=== PATIENT | male | born 2000 | race Caucasian/White ===

== ENCOUNTER 2021-09-14 13:55 | Emergency (ER) | payer OTHER ==
[2021-09-14 14:37] VITALS: BP 139/83; PULSE 98; RESP 17; TEMP 98.7
--- NOTE | 2021-09-14 15:04 | XR ---
EXAMINATION TYPE: XR foot complete RT DATE OF EXAM: 09/14/2021 CLINICAL HISTORY: pain TECHNIQUE: Frontal, lateral and oblique images of the right foot are obtained. COMPARISON: None. FINDINGS: There is no acute fracture/dislocation evident. The joint spaces appear within normal arevalo its. The overlying soft tissue appears unremarkable. IMPRESSION: There is no acute fracture or dislocation. ICD 10 NO FRACTURE, INITIAL EVALUATION
--- NOTE | 2021-09-14 15:30 | ED ---
Lower Extremity Injury HPI - General Chief Complaint: Extremity Injury, Lower Stated Complaint: Fell of ladder at work Time Seen by Provider: 09/14/21 14:46 Source: patient, RN notes reviewed Mode of arrival: ambulatory Limitations: no limitations - History of Present Illness Initial Comments: Patient is a 21-year-old male presenting to emergency Department with complaints of right foot pain after he fell off a ladder prior to arrival. Patient states he was at work, up about 4 feet on the ladder when he felt like the ladder twisted and he fell backwards. He states the ladder went towards the left and he went towards the right, he landed mostly flat on his back. He states he sat there for a few seconds, and felt okay so he went to stand up and noticed some pain in his right heel area. He did not hit his head, no loss of consciousness, no neck pain. He is able to ambulate with placing most of his weight on the front of the foot. He denies any previous injuries or surgeries to his right foot or ankle. He denies any pain in his back, no shortness of breath, no chest pain. He denies any pelvic pain, no abdominal pain, nausea or vomiting. Patient states he feels absolutely fine except for his right foot pain. He has no further complaints. - Related Data Allergies Allergy/AdvReac Type Severity Reaction Status Date / Time No Known Allergies Allergy Verified 09/14/21 14:37 Review of Systems ROS Statement: Those systems with pertinent positive or pertinent negative responses have been documented in the HPI. ROS Other: All systems not noted in ROS Statement are negative. Past Medical History Past Medical History: No Reported History History of Any Multi-Drug Resistant Organisms: None Reported Past Surgical History: No Surgical Hx Reported Past Psychological History: No Psychological Hx Reported Smoking Status: Never smoker Past Alcohol Use History: Rare Past Drug Use History: None Reported General Exam - General Exam Comments Initial Comments: GENERAL: Patient is well-developed and well-nourished. Patient is nontoxic and in no acute distress. HEAD: Atraumatic, normocephalic. No hematoma. EYES: Pupils equal round and reactive to light, extraocular movements intact, sclera anicteric, conjunctiva are normal. Eyelids were unremarkable. ENT: Nares patent, oropharynx clear without exudates. Moist mucous membranes. NECK: Normal range of motion, supple without lymphadenopathy or JVD. No midline tenderness. LUNGS: Unlabored respirations. Breath sounds clear to auscultation bilaterally and equal. No wheezes rales or rhonchi. HEART: Regular rate and rhythm without murmurs, rubs or gallops. ABDOMEN: Soft, nontender, normoactive bowel sounds. No guarding, no rebound. No masses appreciated. MUSCULOSKELETAL: Patient has a mild pain on palpation of the right heel area, no obvious deformity, no swelling noted. Neurovascular intact. Normal extremities with adequate strength and normal range of motion, no pitting or edema. No clubbing or cyanosis. NEUROLOGICAL: Patient is alert and oriented x 3. Motor and sensory are also intact. Cranial nerves II through XII grossly intact. Symmetrical smile. Normal speech, normal gait. PSYCH: Normal mood, normal affect. SKIN: Warm, Dry, normal turgor, no rashes or lesions noted. Limitations: no limitations Course Vital Signs 09/14/21 14:32 Temperature 98.7 F Pulse Rate 98 Respiratory 17 Rate Blood Pressure 139/83 O2 Sat by Pulse 97 Oximetry Medical Decision Making - Medical Decision Making Patient is a 21-year-old male here with right foot pain after he fell off a ladder prior to arrival. About 4 feet up, at work. Did not hit his head, no neck pain, no complaints of pain whatsoever except in his right foot. X-rays reveal no acute fractures dislocations. Most likely a contusion. Recommend ibuprofen and ice. He is agreeable to this plan of care. Patient stable for discharge. Disposition Clinical Impression: Contusion of right foot, Fall Disposition: HOME SELF-CARE Condition: Stable Instructions (If sedation given, give patient instructions): Foot Contusion (ED) Additional Instructions: Please return to the Emergency Department if symptoms worsen or any other concerns. Take ibuprofen for any discomfort, ice to the area. Please follow-up with your doctor if symptoms persist. Is patient prescribed a controlled substance at d/c from ED?: No Referrals: None,Stated [Primary Care Provider] - 1-2 days Time of Disposition: 15:30
== END 2021-09-14 15:57 | disposition home or self-care (01) ==
LOC: EC 13:55
DX: S90.31XA Contusion of right foot, initial encounter (principal); W11.XXXA Fall on and from ladder, initial encounter
CPT/HCPCS: 99283